=== PATIENT | female | born 1970 | race Two or more races ===

== ENCOUNTER 2022-01-10 05:57 | Day surgery (SDC) | payer OTHER ==
[~2022-01-10] VITALS: Ht 157.5 cm; Wt 78.0 kg
[2022-01-10] MEDS ORDERED: ALEVE220 M1 PO (13:09)
[2022-01-10] MEDS ORDERED: PERCOCET 5-3251 EACH PO (13:09)
[2022-01-10] MEDS ORDERED: DUI500 PO (13:09)
== END 2022-01-10 14:15 | disposition home or self-care (01) ==
LOC: CIR.AMB 05:57
PROVIDERS: ATTEND Orthopaedic Surgery
DX: S52.571A Other intraarticular fracture of lower end of right radius, initial encounter for closed fracture (principal); Z20.822 Contact with and (suspected) exposure to COVID-19
CPT/HCPCS: 25609; 20902; C1776